=== PATIENT | female | born 1980 | race African-American/Black ===

== ENCOUNTER 2017-06-15 10:49 | Emergency (ER) | payer OTHER ==
[~2017-06-15] VITALS: Ht 152.4 cm; Wt 59.0 kg
[~2017-06-15 10:49] MED LIST: BACTRIM DS TAB1 EACH; DIPHENHIST50 MG PO; FLAGYL500 MG; FLONASE 0.05%50 MCG NASAL; IBUPROFEN 600600 M1 PO; NOHOMEMEDICATIONS; NORCO 5-325 TA1 EACH PO; ONDANSETRON HCL4 M2 PO; PRILOSEC40 MG PO; TRAMADOL 50 MG50 MG PO; TYLENOL325 MG PO; XANAX 0.5 MG0.5 M1 PO
[2017-06-15 11:18] LABS: ABSOLUTE NEUTROPHILS 6.3 thou/uL (1.4-8.2); EOSINOPHILS 2.2 % (0.0-3.0); HEMATOCRIT 39.4 % (37.0-47.0); HEMOGLOBIN 13.8 gm/dL (12.0-15.0); LYMPHOCYTES 21.2 % (24.0-44.0); MANUAL DIFF NO; MCH 31.5 pg (26.0-34.0); MCHC 35.1 g/dL (28.0-37.0); MCV 89.6 fL (80.0-100.0); MONOCYTES 4.6 % (1.0-8.0); PLATELET COUNT 201 thou/uL (150-400); RDW 13.6 % (10.5-14.5); WBC 8.9 thou/uL (4.0-11.0)
[2017-06-15 11:19] LABS: URINE BILIRUBIN NEGATIVE (Negative); URINE BLOOD NEGATIVE (Negative); URINE COLOR YELLOW; URINE GLUCOSE-RANDOM* NEGATIVE (Negative); URINE KETONES NEGATIVE (Negative); URINE NITRITE NEGATIVE (Negative); URINE PROTEIN (DIPSTICK) 1+ (Negative); URINE UROBILINOGEN 0.2 E.U./dl (0.2-1.0)
[2017-06-15 11:27] LABS: CALCIUM 9.1 mg/dL (8.5-10.1); POTASSIUM 3.7 mmol/L (3.5-5.1)
[2017-06-15 11:32] LABS: TOTAL BILIRUBIN 0.3 mg/dL (<0.1-1.0); TOTAL PROTEIN 7.7 g/dL (6.4-8.2)
[2017-06-15 11:36] LABS: CASTS None Seen /LPF (None Seen); CRYSTALS None Seen /LPF (None Seen); SQUAMOUS >10 Many /LPF (0-3); URINE RBC None Seen /HPF (0-2); URINE WBC 0-5 Rare /HPF (0-5)
[2017-06-15 11:37] LABS: BACTERIA 1-9 Few /HPF (None Seen)
[2017-06-15] MEDS ORDERED: PHENERGAN 25 MG25 M1 PO ×2 (11:47→12:08)
[2017-06-15 12:19] VITALS: BP 106/76
== END 2017-06-15 12:23 | disposition home or self-care (01) ==
LOC: ER 10:49
PROVIDERS: Nurse Practitioner Family
DX: T62.8X1A Toxic effect of other specified noxious substances eaten as food, accidental (unintentional), initial encounter (principal); R11.2 Nausea with vomiting, unspecified; R10.9 Unspecified abdominal pain; F17.210 Nicotine dependence, cigarettes, uncomplicated; F10.99 Alcohol use, unspecified with unspecified alcohol-induced disorder; F12.10 Cannabis abuse, uncomplicated; Z88.0 Allergy status to penicillin; Z88.1 Allergy status to other antibiotic agents; Y92.89 Other specified places as the place of occurrence of the external cause